=== PATIENT | female | born 1995 | race Caucasian/White ===

== ENCOUNTER 2016-10-14 18:33 | Emergency (ER) | payer OTHER ==
[~2016-10-14] VITALS: Ht 167.6 cm; Wt 128.5 kg
[2016-10-14 18:50] VITALS: BP 115/75
== END 2016-10-14 20:36 | disposition home or self-care (01) ==
LOC: ED 18:33
DX: J02.9 Acute pharyngitis, unspecified (principal); A38.9 Scarlet fever, uncomplicated

== ENCOUNTER 2018-06-26 08:45 | Emergency (ER) | payer OTHER ==
[2018-06-26 09:06] VITALS: Ht 170.2 cm
[2018-06-26 11:08] VITALS: BP 140/69
== END 2018-06-26 11:08 | disposition home or self-care (01) ==
LOC: ED 08:45
DX: J20.9 Acute bronchitis, unspecified (principal); J98.11 Atelectasis
CPT/HCPCS: J7613

== ENCOUNTER 2018-11-06 17:54 | Emergency (ER) | payer OTHER ==
[~2018-11-06] VITALS: Ht 170.2 cm; Wt 138.8 kg
[2018-11-06 18:49] VITALS: Ht 170.2 cm; Wt 138.8 kg
[2018-11-06 19:27] LABS: CALCIUM 9.3 mg/dL (8.5-10.1); CARBON DIOXIDE 26.6 mmol/L (21-32); CHLORIDE SERUM 105 mmol/L (98-107); CREATININE SERUM 0.8 mg/dL (0.6-1.0); GFR1 > 60 mL/min; GLUCOSE SERUM 99 mg/dL (74-106); POTASSIUM SERUM 3.7 mmol/L (3.5-5.1); SODIUM SERUM 142 mmol/L (136-145)
[2018-11-06 19:28] LABS: ALBUMIN 3.5 g/dL (3.4-5.0); ALKALINE PHOSPHATASE 81 U/L (46-116); ALT/SGPT 38 U/L (14-59); AST/SGOT 20 U/L (15-37); BASOPHIL % 0.5 % (0-2); BILIRUBIN TOTAL 0.21 mg/dL (0.20-1.00); PLATELET COUNT 291 x10^3mcL (130-400); RED CELL DISTRIBUTION WIDTH 13.2 % (11.5-14.5)
[2018-11-06 19:30] LABS: TOTAL PROTEIN, SERUM 8.4 g/dL (6.4-8.2)
[2018-11-06 22:45] VITALS: BP 147/87
== END 2018-11-06 22:58 | disposition home or self-care (01) ==
LOC: ED 17:54
DX: K59.00 Constipation, unspecified (principal); K62.5 Hemorrhage of anus and rectum
CPT/HCPCS: 36415; Q0092